=== PATIENT | female | born 1995 | race Caucasian/White ===

== ENCOUNTER → 2021-08-24 | Outpatient (CLI) | payer BC ==
[2021-08-24 13:09] LABS: BUN/CREATININE RATIO 27 (0-10)
[2021-08-24 13:28] LABS: HEMOGLOBIN 12.9 gm/dl (12.3-15.3); RED BLOOD COUNT 4.28 M/UL (4.00-5.10); WHITE BLOOD COUNT 10.1 K/UL (4.5-11.0)
[2021-08-25 08:13] LABS: ESTRADIOL 21.8 pg/mL (.); FSH 6.3 mIU/mL (.); LUTEINIZING HORMONE(LH) 2.4 mIU/mL (.); PROGESTERONE 0.1 ng/mL (.); PROLACTIN 8.7 ng/mL (4.8-23.3); TESTOSTERONE, SERUM 15 ng/dL (13-71); VITAMIN D, 25-HYDROXY 21.6 ng/mL (30.0-100.0)
[2021-08-28 18:08] LABS: 17-OH PROGESTERONE LCMS 22 ng/dL (.)
== END ==
LOC: LAB 10:20
PROVIDERS: Family Medicine
DX: Z01.419 Encounter for gynecological examination (general) (routine) without abnormal findings (principal); N97.9 Female infertility, unspecified
CPT/HCPCS: 36415; 80053; 82627; 82670; 83001; 83002; 83036; 83498; 84144; 84146; 84403; 85025

== ENCOUNTER → 2021-09-20 | Outpatient (CLI) | payer BC | LOC: LAB 12:41 | DX: Z32.01 Encounter for pregnancy test, result positive (principal) | CPT/HCPCS: 36415; 84144; 84702 ==

== ENCOUNTER → 2022-02-05 | Outpatient (CLI) | payer BC | LOC: LAB 14:16 | DX: N92.6 Irregular menstruation, unspecified (principal) | CPT/HCPCS: 36415; 84144; 84702 ==